=== PATIENT | male | born 1980 | race Caucasian/White ===

== ENCOUNTER 2022-05-23 07:35 | Inpatient (IN) | payer BC ==
[2022-05-23] MEDS ORDERED: HumaLOG 300 UNITS/3 ML VIAL SC PRN ×2 (08:24)
[2022-05-23] MEDS ORDERED: Dextrose 5% in Water 1,000 ML IV PRN (08:24)
[2022-05-23] MEDS ORDERED: Dextrose 50% Abboject 50 ML SYRINGE SLOW IVP PRN (08:24)
[2022-05-23] MEDS ORDERED: Nicotine 14 MG PATCH TD PRN (08:25)
[2022-05-23] MEDS ORDERED: Senokot S 8.6-50 MG TAB PO PRN (08:25)
[2022-05-23] MEDS ORDERED: Acetaminophen 325 MG TAB PO PRN (08:25)
[2022-05-23] MEDS ORDERED: Ondansetron PF 4 MG/2 ML Vial IVP PRN (08:25)
[2022-05-23] MEDS ORDERED: Ondansetron ODT 4 MG TAB PO PRN (08:25)
[2022-05-23] MEDS ORDERED: traMADol HCl 50 MG TAB PO PRN (08:27)
[2022-05-23 09:46] LABS: #Basophils 0.1 10x3/uL (0.0-0.2); #Eosinphils 0.3 10x3/uL (0.0-0.5); #Monocytes 0.7 10x3/uL (0.0-1.1); #Neutrophils 5.8 10x3/uL (1.5-8.4); %Basophils 0.5 % (0.0-2.0); %Lymphocytes 28.4 % (18.0-47.0); %Monocytes 7.4 % (0.0-10.0); %Neutrophils 59.8 % (40.0-75.0); Hemoglobin 13.3 g/dL (13.5-17.5); Mean Corpuscular HGB CONC 33.3 g/dL (32.0-36.0); Mean Corpuscular Hemoglobin 28.7 pg (27.0-33.0); Mean Corpuscular Volume 86.4 fl (81.2-95.1); Mean Platelet Volume 9.9 fl (7.4-10.4); Platelet Count 280 10x3/uL (150-450); RBC Distribution Width 12.8 % (11.5-14.5); Red Blood Cell (RBC) Count 4.63 10x6/uL (4.32-5.72); White Blood Cell (WBC) Count 9.7 10x3/uL (3.5-10.5)
[2022-05-23 09:58] LABS: ALT (SGPT) 18 U/L (8-55); AST (SGOT) 12 U/L (5-34); Alkaline Phosphatase 87 U/L (40-110); Anion Gap 11 mmol/L (10-20); BUN (Urea Nitrogen) 13 mg/dL (8.9-20.6); Bilirubin, Total 0.4 mg/dL (0.2-1.2); Calc. Creatinine Clearance 0 mL/min (70-130); Calcium 9.4 mg/dL (7.8-10.44); Carbon Dioxide 27 mmol/L (22-29); Chloride 104 mmol/L (98-107); Estimated GFR 112; Globulin 2.8 g/dL (2.4-3.5); Glucose 227 mg/dL (70-105); Potassium 4.4 mmol/L (3.5-5.1); Protein, Total 6.8 g/dL (6.0-8.3); Sodium 138 mmol/L (136-145)
[2022-05-23 10:58] VITALS: BMI 29.5
[2022-05-23] MEDS: Sodium Chloride 0.9% 1,000 ML IV SCH ×2 (11:24→21:45)
[2022-05-23] MEDS ORDERED: Neomycin-Polymyxin 1 ML AMP ONE (14:30)
[2022-05-23] MEDS ORDERED: Bupivacaine PF 0.5% 30 ML VIAL ONE (14:30)
[2022-05-23 14:48] LABS: SARS-CoV-2 NAA Rapid Test Not Detected (NotDetected)
[2022-05-23] MEDS ORDERED: PROPOFOL 40 ML ONE (15:03)
[2022-05-23] MEDS ORDERED: Lidocaine 2% PF 5 ML VIAL ONE (15:04)
[2022-05-23] MEDS ORDERED: Fentanyl 100 MCG/2 ML VIAL ONE (15:04)
[2022-05-23] MEDS ORDERED: Ondansetron PF 4 MG/2 ML Vial ONE (15:21)
[2022-05-23] MEDS ORDERED: Ketorolac Tromethamine 30 MG/ML VIAL ONE (15:26)
[2022-05-23] MEDS ORDERED: Morphine 4 MG/ML VIAL SLOW IVP PRN (20:11)
[2022-05-23] MEDS ORDERED: traZODone HCl 50 MG TAB PO PRN (20:21)
[2022-05-24 04:15] LABS: #Basophils 0.1 10x3/uL (0.0-0.2); #Eosinphils 0.4 10x3/uL (0.0-0.5); #Monocytes 0.8 10x3/uL (0.0-1.1); #Neutrophils 9.1 10x3/uL (1.5-8.4); %Basophils 0.4 % (0.0-2.0); %Eosinophils 2.6 % (0.0-6.0); %Lymphocytes 24.9 % (18.0-47.0); %Monocytes 5.9 % (0.0-10.0); %Neutrophils 65.8 % (40.0-75.0); Hemoglobin 12.8 g/dL (13.5-17.5); Mean Corpuscular HGB CONC 33.2 g/dL (32.0-36.0); Mean Corpuscular Hemoglobin 28.8 pg (27.0-33.0); Mean Corpuscular Volume 86.7 fl (81.2-95.1); Mean Platelet Volume 9.5 fl (7.4-10.4); Platelet Count 258 10x3/uL (150-450); RBC Distribution Width 12.8 % (11.5-14.5); Red Blood Cell (RBC) Count 4.44 10x6/uL (4.32-5.72); White Blood Cell (WBC) Count 13.8 10x3/uL (3.5-10.5)
[2022-05-24 04:32] LABS: Anion Gap 11 mmol/L (10-20); BUN (Urea Nitrogen) 15 mg/dL (8.9-20.6); Calc. Creatinine Clearance 165 mL/min (70-130); Calcium 8.7 mg/dL (7.8-10.44); Carbon Dioxide 26 mmol/L (22-29); Chloride 107 mmol/L (98-107); Estimated GFR 111; Glucose 196 mg/dL (70-105); Potassium 4.2 mmol/L (3.5-5.1); Sodium 140 mmol/L (136-145)
[2022-05-24 06:35] LABS: Bilirubin Neg (Negative); Blood, Urine Negative (Negative); Clarity Clear (Clear); Glucose, Urine (Dipstick) 250 mg/dL (Negative); Ketone, Urine Negative (Negative); Leukocyte Negative (Negative); Nitrite Negative (Negative); Protein, Urine (Dipstick) 30 mg/dl (Neg-Trace); Urobilinogen Normal mg/dL (Less than 2)
[2022-05-24 06:48] LABS: RBC/HPF 0-3 HPF (0-3); Renal Epithelial 0-3 HPF (None Seen); Transitional Epithelial 0-3 HPF (None Seen)
[2022-05-24 06:49] LABS: Bacteria/HPF Rare-Few HPF (None Seen); Mucous/LPF 1+ LPF (<2+)
[2022-05-24] MEDS ORDERED: Cefepime 2 GM in Sodium Chloride 0.9% 100 ML IVPB SCH (09:00)
[2022-05-24] MEDS ORDERED: diphenhydrAMINE 25 MG CAP PO SCH (10:30)
[2022-05-24 11:56] VITALS: TEMP 98.3
[2022-05-24 12:27] VITALS: BP 159/72
[2022-05-24] MEDS ORDERED: Amoxicillin/Potassium Clav 875 MG TAB PO SCH (21:00)
== END 2022-05-24 13:41 | disposition home or self-care (01) | DRG 572 ==
LOC: CSHTELE 07:35 → OBSVTOIN 07:35
PROVIDERS: ADMIT Internal Medicine; ATTEND Internal Medicine
PROC: 0J9R0ZZ Drainage of Left Foot Subcutaneous Tissue and Fascia, Open Approach (ICD-10-PCS; principal; 2022-05-23)
PROC: 0JBR0ZZ Excision of Left Foot Subcutaneous Tissue and Fascia, Open Approach (ICD-10-PCS; 2022-05-23)
DX: L02.612 Cutaneous abscess of left foot (principal); E11.9 Type 2 diabetes mellitus without complications; F32.A Depression, unspecified; F17.210 Nicotine dependence, cigarettes, uncomplicated; Z20.822 Contact with and (suspected) exposure to COVID-19; Z88.5 Allergy status to narcotic agent; Z79.899 Other long term (current) drug therapy
CPT/HCPCS: 36416; 71045; 71046; 80048; 80053; 81001; 85025; 87070; 87205; 93005; 93010; 94760; J0692; J1815; J1885; J2001; J2405; J2704; J3010; J3490; J7050; S0020; U0002